=== PATIENT | male | born 1945 | race Caucasian/White ===

== ENCOUNTER → 2020-12-22 | Outpatient (CLI) | payer MEDICARE ==
[~2020-12-22] MED LIST: ASPI1TAB88 PO; CHOL500050 PO; DOXA2TAB2 PO; HYDR-2145 PO; METF10007 PO; MULT400T3 PO; PSEU120T9 PO; VERA240C2 PO
--- NOTE | 2020-12-22 11:37 | PDOC1 ---
INITIAL PAIN CONSULT DATE OF SERVICE: DOS: DATE: 12/22/20 TIME: 11:31 CHIEF COMPLAINT: Chief Complaint: Low back and bilateral lower extremity pain HISTORY OF PRESENT ILLNESS: 75-year-old male presents history of pain low back bilateral lower extremity since about September or October of this year 3 to 4 months ago without any specific injury or accident that he is aware but is getting worse with time and standing walking changing positions is exacerbated the pain is in the low across the low back into the bilateral lower extremities radiating posterior gluteus posterior lateral thigh lateral anterior thigh anteromedial thigh medial lower legs and calves to the ankles patient reports they feel "shaky" patient reports it got worse after shoveling some snow in September of this year and his legs gave out on him where he fell and his neighbor had to help him up a few minutes later. Patient reports he has not had any other incidences like this since that time but the legs feel unstable and painful. Patient reports he has had physical therapy in the past also has epidural injections many years ago which were helpful and is doing some exercising and stretching on his own which he feels helps but is not relieving the pain completely. Patient reports taking Tia back and body tablets which helps slightly and took 1 as early as this morning. 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 PAST MEDICAL HISTORY: PMH: Arthritis, hypertension, shortness of breath, type 2 diabetes, dizziness, scoliosis PREVIOUS SURGERIES: Past Surgical Hx: Cataract extraction on the right, bilateral rotator cuff repairs CURRENT MEDICATIONS: Current Meds: Active Scripts Medications Dose Route/Sig Max Daily Dose Days Date Category One Daily Multivitamin Tablet (Multivitamin With Folic Acid) 400 Mcg Tablet 1 Tab PO DAILY 30 12/22/20 Reported Vitamin D3 (Cholecalciferol (Vitamin D3)) 1,250 Mcg Capsule 2,000 Intlu PO BID 12/22/20 Reported Sudafed 12-Hour (Pseudoephedrine Hcl) 120 Mg Tablet.er 1 Tab PO BID 12/22/20 Reported Tia Back & Body Caplet (Aspirin/Caffeine) 1 Each Tablet 2 Each PO BID 12/22/20 Reported Verapamil Er (Verapamil Hcl) 240 Mg Cap24h.pel 180 Mg PO DAILY 12/22/20 Reported Hydrochlorothiazide Tablet (Hydrochlorothiazide) 25 Mg Tablet 37.5 Mg PO DAILY 12/22/20 Reported Metformin Hcl 1,000 Mg Tablet 1,000 Mg PO BIDWMEALS 12/22/20 Reported Doxazosin Mesylate 2 Mg Tablet 1 Tab PO DAILY 12/22/20 Reported ALLERGIES; Allergies: Coded Allergies: No Known Drug Allergies (Unverified , 12/22/20) FAMILY HISTORY: Family Hx: Diabetes, hypertension SOCIAL HISTORY: Social Hx: Patient does not drink alcohol, does not smoke, denies any illegal illicit recreational drug use, is lives with spouse lives locally in [facility] and is currently retired. REVIEW OF SYSTEMS: ROS: Positive for those items mentioned in history of present illness, all systems are reviewed, otherwise negative ,and are complete full and well-documented on patient's chart. PHYSICAL EXAM: VS: Blood pressure is 141/66 pulse 61 respirations 16 temperature 98.2 F height is 5 foot 11 inches weight is 196 pounds PE: PHYSICAL EXAMINATION: GENERAL: The patient is awake, alert, oriented, appropriate, very pleasant demeanor HEENT: Shows normocephalic, atraumatic. Extraocular movements are intact and symmetrical. Oral cavity: Mucous membranes moist and pink. NECK: Shows anterior throat supple without palpable lymphadenopathy noted. Swal low reflex symmetrical. CHEST: Shows normal on inspection. Breath sounds are clear bilaterally, distant but no rales or rhonchi or wheezes auscultated. HEART: Shows S1, S2 clear. No murmurs auscultated. ABDOMEN: Soft, nontender, nondistended, obese. No palpable organomegaly is noted. No rebound or guarding demonstrated. BACK: Shows spine grossly in the midline. Normal-appearing cervical lordotic curvature. There is slightly increased thoracic kyphosis, some minor flattening of the lumbar lordotic curvature. Lumbar paraspinous muscles show symmetrical on inspection, on palpation shows some moderate tenderness diffusely throughout the upper, middle and lower distribution of the paraspinous muscles bilaterally and also into the lower thoracic paraspinous musculature, firm and tender, but without specific trigger points, without radiation of pain. The patient has good rotational motion of the lumbar spine, both laterally as well as extension and flexion without significant difficulty. No tenderness over the spinous processes, sacrum or sacroiliac regions. EXTREMITIES: Lower extremities show deep tendon reflexes 2+ in the patellar and tendo calcaneus tendons. Motor exam is 4 on a scale of 5 with right dorsiflexion, extension, quadriceps and hamstring flexion and 5/5 on the left. Peripheral pulses are 1+ posterior tibial. No peripheral edema is noted bilaterally. Lower extremities are warm and dry to touch, equal in color and appearance. The patient is able to stand, stand on his toes without significa nt difficulty or loss of balance walks with a slight shuffling gait does not appear to favor the right or left lower extremity significantly and does not use any assistive device such as canes or walkers to ambulate. SKIN: Shows warm and dry, good turgor. No edema. No sores, rashes or bruising throughout. IMPRESSION: Impression: 75-year-old male with approximate 3 to 4-month history increasing pain low back bilateral lower extremities in a radicular fashion. Arthritis Dizziness Hypertension Type 2 diabetes Plan: Options were discussed with the patient including conservative medical management physical therapy interventional techniques. Patient would like to pursue most conservative measures at this time, we discussed a lumbar epidural steroid injection as well as medication management. We will prescribe Medrol Dosepak, patient was given instructions well side effects beware with the medication. If not significantly improved patient will return for lumbar epidural steroid injection. KAMILLA DOMINGUEZ MD Dec 22, 2020 11:37
== END | disposition home or self-care (01) ==
LOC: PNCL 09:01
PROVIDERS: ATTEND Anesthesiology
DX: M54.5 Low back pain (principal); M79.605 Pain in left leg; M79.604 Pain in right leg; M19.90 Unspecified osteoarthritis, unspecified site; I10 Essential (primary) hypertension; E11.9 Type 2 diabetes mellitus without complications; Z79.899 Other long term (current) drug therapy; Z98.890 Other specified postprocedural states; Z82.49 Family history of ischemic heart disease and other diseases of the circulatory system; Z83.3 Family history of diabetes mellitus; Z79.82 Long term (current) use of aspirin; Z79.84 Long term (current) use of oral hypoglycemic drugs
CPT/HCPCS: G0463

== ENCOUNTER → 2021-02-12 | Outpatient (CLI) | payer MEDICARE ==
[~2021-02-12] MED LIST changes: +IOHEXOL 180 MG/ML 10 ML VIAL. ONE; +methylPREDNISolone ACETATE 40 MG/ML VIAL. ONE; +methylPREDNISolone ACETATE 80 MG/ML VIAL. ONE
--- NOTE | 2021-02-12 11:06 | PDOC ---
Progress Note - Pain Clinic Date of Service: DOS: DATE: 02/12/21 TIME: 11:04 Diagnosis: Dx: Lumbar radiculopathy with lumbar degenerative disc disease History or Present Illness: HPI: 75-year-old male returns follow-up stent post initial valuation and Medrol Dosepak patient reports it helped for the first few days the pain returned fairly quickly in the low back and bilateral lower extremities posterior gluteus lateral thighs anterior thighs medial thighs posterior calf to the ankles patient reports is aching and dull rated as a 9 on scale 10 is worse over the past week 7 on average 3 at its least 5 today. Patient reports is worse with walking standing changing positions better with sitting or laying down no new motor or sensory deficits no new bowel or bladder incontinence or other complaints. Physical Exam: VS: Blood pressure is one 6/76 pulse 62 respirations 18 temperature is 98.2 F height is 5 feet 11 inches weight is 194 pounds PE: PHYSICAL EXAMINATION: GENERAL: The patient is awake, alert, oriented, appropriate, very pleasant in demeanor HEENT: Shows normocephalic, atraumatic. Extraocular movements are intact and symmetrical. NECK: Shows anterior throat supple without palpable lymphadenopathy noted. Swallow reflex symmetrical. CHEST: Shows normal on inspection. Breath sounds are clear bilaterally. HEART: Shows S1, S2 clear. No murmurs auscultated. ABDOMEN: Soft, nontender, nondistended, obese. BACK: Shows spine grossly in the midline. Normal-appearing cervical lordotic curvature. There is slightly increased thoracic kyphosis, some minor flattening of the lumbar lordotic curvature. Lumbar paraspinous muscles show symmetrical on inspection, on palpation shows some moderate tenderness diffusely throughout the upper, middle and lower distribution of the paraspinous muscles without specific trigger points, without radiation of pain. The patient has good rotational motion of the lumbar spine, both laterally as well as extension and flexion without significant difficulty. No tenderness over the spinous processes, sacrum or sacroiliac regions. EXTREMITIES: Lower extremities show deep tendon reflexes 2+ in the patellar and tendo calcaneus tendons. Motor exam is 4 on a scale of 5 with right dorsiflexion, extension, quadriceps and hamstring flexion and 5/5 on the left. Peripheral pulses are 1+ posterior tibial. No peripheral edema is noted bilaterally. Lower extremities are warm and dry to touch, equal in color and appearance. SKIN: Shows warm and dry, good turgor. No edema. No sores, rashes or bruising throughout. Procedure: Procedure: Options were discussed with the patient. Patient chart was reviewed his his current medication regimen updated current review of systems updated today as well. We will proceed with a lumbar epidural steroid check today with fluoroscopic guidance. Risks were discussed including but not limited to: Bleeding, infection, possibility of epidural hematoma and subsequent neurological compromise, dural puncture, headaches, spinal cord and/or nerve damage, side effects of steroid medication, and poor results regarding pain con trol. Patient understands and wished to proceed. Patient will return to the clinic in approximate 2 weeks for follow-up, was counseled as to return appointment activity level and side effects to be aware of. Medication Injected: Med Injected: Procedure is lumbar epidural steroid injection under local anesthetic using sterile prep and drape at the L4-5 level using C-arm fluoroscopic guidance in both AP and lateral views medications injected is 120 mg Depo-Medrol +10mL prese rvative-free normal saline and 2 mL contrast- condition at discharge is stable patient tolerated procedure well had no complications. Condition at Discharge: Condition at Discharge: Condition at discharge is stable, patient already the procedure well and had no complications. KAMILLA DOMINGUEZ MD Feb 12, 2021 11:06
--- NOTE | 2021-02-12 11:06 | PDOC4 ---
PROCEDURE Procedure Patient was consented for lumbar epidural steroid injection. Risks were dis cussed including but not limited to: Bleeding, infection, possibility of epidural hematoma and subsequent neurological compromise, dural puncture, headaches, spinal cord and/or nerve damage, side effects of steroid medication, and poor results regarding pain control. Patient understands and wished to proceed. Procedure is lumbar epidural steroid injection under local anesthetic using sterile prep and drape at the L4-5 level using C-arm fluoroscopic guidance in both AP and lateral views medications injected is 120 mg Depo-Medrol +10mL preservative-free normal saline and 2 mL contrast- condition at discharge is stable patient tolerated procedure well had no complications. KAMILLA DOMINGUEZ MD Feb 12, 2021 11:06
== END | disposition home or self-care (01) ==
LOC: PNCL 08:39
PROVIDERS: ATTEND Anesthesiology
DX: M51.16 Intervertebral disc disorders with radiculopathy, lumbar region (principal); Z79.82 Long term (current) use of aspirin; Z79.84 Long term (current) use of oral hypoglycemic drugs; Z79.899 Other long term (current) drug therapy
CPT/HCPCS: 62323; J1030; J1040; Q9965

== ENCOUNTER → 2021-03-05 | Outpatient (CLI) | payer MEDICARE ==
--- NOTE | 2021-03-05 10:37 | PDOC ---
Progress Note - Pain Clinic Date of Service: DOS: DATE: 03/05/21 TIME: 10:34 Diagnosis: Dx: Lumbar radiculopathy with lumbar degenerative disc disease History or Present Illness: HPI: 75-year-old male returns for follow-up status post lumbar epidural steroid injection x1. Patient reports that the back is doing much better near 100% improvement in his lower extremities still having some significant pain rating the posterior gluteus posterior lateral thigh lateral anterior thighs into medial thighs and sometimes into the calves as well with walking and standing patient reports dull pain which is burning and stabbing at times in the legs but the back is doing much better. Patient reports he had a stumble at home where he fell about a week ago but only briefly and landed on his right knee which has some pain in the right knee as well but is getting better with some time patient reports also new medication of arthritis strength Tylenol 650 mg which he has been taking since the fall 3 times daily which does seem to be improving however is not improved his lower extremity pain otherwise. Patient reports his pain is a 2 on scale 10 is worse over the past week to an average 1 at its least and is a 1 today. Patient describes it again as dull and aching and some sharp pain in the right knee. Physical Exam: VS: Blood pressure is 137/77 pulse 60 respirations 18 temperature 98.3 F weight is 189 pounds PE: PHYSICAL EXAMINATION: GENERAL: The patient is awake, alert, oriented, appropriate, very pleasant in demeanor. HEENT: Shows normocephalic, atraumatic. Extraocular movements are intact and symmetrical. NECK: Shows anterior throat supple without palpable lymphadenopathy noted. Swallow reflex symmetrical. CHEST: Shows normal on inspection. Breath sounds are clear bilaterally, distant but no rales or rhonchi. HEART: Shows S1, S2 clear. No murmurs auscultated. ABDOMEN: Soft, nontender, nondistended, obese. No palpable organomegaly is noted. BACK: Shows spine grossly in the midline. Normal-appearing cervical lordotic curvature. There is increased thoracic kyphosis, some minimal flattening of the lumbar lordotic curvature. Lumbar paraspinous muscles show symmetrical on inspection, on palpation shows some moderate tenderness diffusely throughout the upper, middle and lower distribution of the paraspinous muscles, but without specific trigger points, without radiation of pain. The patient has good rotational motion of the lumbar spine, both laterally as well as extension and flexion without significant difficulty. No tenderness over the spinous processes, sacrum or sacroiliac regions. EXTREMITIES: Lower extremities show deep tendon reflexes 2+ in the patellar and tendo calcaneus tendons. Motor exam is 4 on a scale of 5 with right dorsiflexion, extension, quadriceps and hamstring flexion and 5/5 on the left. Peripheral pulses are 1+ posterior tibial. No peripheral edema is noted bilaterally. Lower extremities are warm and dry to touch, equal in color and appearance. Patient's right knee shows mild tenderness under the patella bilaterally but without any bruising or discoloration. SKIN: Shows warm and dry, good turgor. No edema. No sores, rashes or bruising throughout. Procedure: Procedure: Options were discussed with the patient. Patient chart was reviewed his current medication regimen updated current review of systems updated today as well. We will proceed with a second in a series lumbar epidural steroid injection today with fluoroscopic guidance. Risks were discussed including but not limited to: Bleeding, infection, possibility of epidural hematoma and subsequent neurological compromise, dural puncture, headaches, spinal cord and/or nerve damage, side effects of steroid medication, and poor results regarding pain control. Patient understands and wished to proceed. Patient will return to clinic in approximate 2 weeks for follow-up, was counseled as return appointment activity level and side effects to be aware of. Medication Injected: Med Injected: Procedure is lumbar epidural steroid injection under local anesthetic using sterile prep and drape at the L4-5 level using C-arm fluoroscopic guidance in both AP and lateral views medications injected is 120 mg Depo-Medrol +10mL preservative-free normal saline and 2 mL contrast- condition at discharge is stable patient tolerated procedure well had no complications. Condition at Discharge: Condition at Discharge: Condition at discharge stable, patient alert procedure well and had no complications. KAMILLA DOMINGUEZ MD Mar 05, 2021 10:37
--- NOTE | 2021-03-05 10:38 | PDOC4 ---
Procedure Note: Procedure Note: Patient was consented for lumbar epidural steroid injection. Risks were discussed including but not limited to: Bleeding, infection, possibility of epidural hematoma and subsequent neurological compromise, dural puncture, headaches, spinal cord and/or nerve damage, side effects of steroid medication, and poor results regarding pain control. Patient understands and wished to proceed. Procedure is lumbar epidural steroid injection under local anesthetic using sterile prep and drape at the L4-5 level using C-arm fluoroscopic guidance in both AP and lateral views medications injected is 120 mg Depo-Medrol +10mL preservative-free normal saline and 2 mL contrast- condition at discharge is stable patient tolerated procedure well had no complications. KAMILLA DOMINGUEZ MD Mar 05, 2021 10:37
== END | disposition home or self-care (01) ==
LOC: PNCL 09:27
PROVIDERS: ATTEND Anesthesiology
DX: M51.16 Intervertebral disc disorders with radiculopathy, lumbar region (principal); Z79.82 Long term (current) use of aspirin; Z79.899 Other long term (current) drug therapy
CPT/HCPCS: 62323; J1030; J1040; Q9965

== ENCOUNTER → 2021-03-19 | Outpatient (CLI) | payer MEDICARE ==
--- NOTE | 2021-03-19 10:37 | PDOC ---
Progress Note - Pain Clinic Date of Service: DOS: DATE: 03/19/21 TIME: 10:32 Diagnosis: Dx: Lumbar radiculopathy with lumbar degenerative disc disease History or Present Illness: HPI: 75-year-old male returns in follow-up status post lumbar epidural steroid injection x2. Patient reports his pain is significantly reduced by 80%, but is reporting new findings of significant weakness in the bilateral lower extremities mostly with standing walking patient reports he feels like he is much weaker than he was is unable to stand as long as unable to travel as long with walking is unable to sit as long patient reports pain is 8 on scale 10 is worse over the past week 8 on average 7 its least is 8 today patient ports unbearable at times due to the weakness patient when she had a 5 pound weight loss since his last visit and he is no longer having any swelling in his lower extremities but he is worried about the weight loss at this time. And significantly worried about the weakness in the lower extremities which is new for him. Patient reports no motor loss but significant fatigability and weakness in the lower extremities as noted no new bowel or bladder incontinence. In the lower extremities Physical Exam: VS: Blood pressure is 141/76 pulse 66 respirations 18 temperature 90.1 F height is 5 foot 11 inches weight is 183 pounds PE: PHYSICAL EXAMINATION: GENERAL: The patient is awake, alert, oriented, appropriate, very pleasant in demeanor. HEENT: Shows normocephalic, atraumatic. Extraocular movements are intact and symmetrical. NECK: Shows anterior throat supple without palpable lymphadenopathy noted. Swallow reflex symmetrical. CHEST: Shows normal on inspection. Breath sounds are clear bilaterally. HEART: Shows S1, S2 clear. No murmurs auscultated. ABDOMEN: Soft, nontender, nondistended, obese. BACK: Shows spine grossly in the midline. Normal-appearing cervical lordotic curvature. There is slightly increased thoracic kyphosis, some minor flattening of the lumbar lordotic curvature. Lumbar paraspinous muscles show symmetrical on inspection, on palpation shows some moderate tenderness diffusely throughout the upper, middle and lower distribution of the paraspinous muscles, but without specific trigger points, without radiation of pain. The patient has good rotational motion of the lumbar spine, both laterally as well as extension and flexion without significant difficulty. EXTREMITIES: Lower extremities show deep tendon reflexes 2+ in the patellar and tendo calcaneus tendons. Motor exam is 4 on a scale of 5 with right dorsiflexion, extension, quadriceps and hamstring flexion and 5/5 on the left. Peripheral pulses are 1+ posterior tibial. No peripheral edema is noted bilaterally. Lower extremities are warm and dry. SKIN: Shows warm and dry, good turgor. No edema. No sores, rashes or bruising throughout. Procedure: Procedure: Options discussed with patient. Patient's old chart reviewed his current medication regimen updated current review of systems updated today as well. We will proceed with a third in the series lumbar epidural steroid injection today with fluoroscopic guidance. Risks were discussed including but not limited to: Bleeding, infection, possibility of epidural hematoma and subsequent neurological compromise, dural puncture, headaches, spinal cord and/or nerve damage, side effects of steroid medication, and poor results regarding pain control. Patient understands and wished to proceed. Patient return to clinic in approximate 2 weeks for follow-up, was counseled as return appointment to fill and side effects to be aware of. Medication Injected: Med Injected: Procedure is lumbar epidural steroid injection under local anesthetic using sterile prep and drape at the L4-5 level using C-arm fluoroscopic guidance in both AP and lateral views medications injected is 120 mg Depo-Medrol +10mL preservative-free normal saline and 2 mL contrast- condition at discharge is stable patient tolerated procedure well had no complications. Condition at Discharge: Condition at Discharge: Condition at discharge stable, patient already procedure well and had no complications. KAMILLA DOMINGUEZ MD Mar 19, 2021 10:37
--- NOTE | 2021-03-19 10:38 | PDOC4 ---
Procedure Note: ICD 10 Code: ICD 10 Code: M 54.16 M 51.36 Procedure Note: Patient was consented for lumbar epidural steroid injection. Risks were discussed including but not limited to: Bleeding, infection, possibility of epidural hematoma and subsequent neurological compromise, dural puncture, headaches, spinal cord and/or nerve damage, side effects of steroid medication, and poor results regarding pain control. Patient understands and wished to proceed. Procedure is lumbar epidural steroid injection under local anesthetic using sterile prep and drape at the L4-5 level using C-arm fluoroscopic guidance in both AP and lateral views medications injected is 120 mg Depo-Medrol +10mL preservative-free normal saline and 2 mL contrast- condition at discharge is stable patient tolerated procedure well had no complications. KAMILLA DOMINGUEZ MD Mar 19, 2021 10:37
== END | disposition home or self-care (01) ==
LOC: PNCL 09:48
PROVIDERS: ATTEND Anesthesiology
DX: M51.16 Intervertebral disc disorders with radiculopathy, lumbar region (principal); Z79.82 Long term (current) use of aspirin; Z79.84 Long term (current) use of oral hypoglycemic drugs; Z79.899 Other long term (current) drug therapy
CPT/HCPCS: 62323; J1030; J1040; Q9965